=== PATIENT | male | born 1995 | race Caucasian/White ===

== ENCOUNTER 2016-05-28 15:08 | Emergency (ER) | payer MEDICAID ==
[2016-05-28] MEDS ORDERED: KETOROLAC 60 MG/2 ML VIAL IM ONE (16:15)
== END 2016-05-28 17:30 | disposition home or self-care (01) ==
LOC: ER 15:08
CPT/HCPCS: 71020; 72100; 96372

== ENCOUNTER 2016-06-13 08:38 | Emergency (ER) | payer MEDICAID | END 2016-06-13 09:04 | disposition home or self-care (01) | LOC: ER 08:38 | DX: H53.121 Transient visual loss, right eye (principal); H11.31 Conjunctival hemorrhage, right eye ==